=== PATIENT | female | born 1950 | race Caucasian/White ===

== ENCOUNTER 2019-01-04 14:10 | Inpatient (IN) | payer OTHER ==
[~2019-01-04 14:10] MED LIST: ALPHAGAN P10 ML OP; CALTRATE PLUS1 EACH PO; CENTRUM SILVER1 EAC1 PO; CIDAFLEX TABLE1 EACH PO; GARLIC OIL1 EACH PO; LEVOTHROID75 MCG PO; LORTAB 5 MG/5001 TA1 PO; STOOL SOFTENER240 MG PO; THIOTHIXENE5 M1 PO
--- NOTE | 2019-01-04 17:41 | NUR ---
CLIENT HERE WITH EMS WALKING WITH 2 EMS PERSONS. REFUSED TO HAVE VITALS TAKEN AT ADMIT. HEARING VOICES AND TELLING THEM TO STOP. WANTS TO WALK AROUND THE UNIT TO GET OUT OF ROOM DUE TO VOICES. SHE STATED SHE SOUNDS LIKE SHE IS TALKING LOUD. SHE YELLED OUT WHEN HERE TALKING TO VOICES. SMELLS LIKE CIGARETTS. HITTING HEAD ON WALL IN HALLWAY TALKING TO DR. EDWARDS. SHE STATED SORRY SHE WAS NOT NICE, SHE WAS HAVING A BAD DAY AND JUST WANTED TO . SHE STATED SHE WANTED TO GET OUT OF HER SISTERS HOUSE AND GET HER OWN APT.
--- NOTE | 2019-01-04 18:00 | NUR ---
OBTAINED VS AT THIS TIME. TALKING TO ROOM BY HER SELF.
[2019-01-04 18:20] VITALS: BP 171/101
--- NOTE | 2019-01-04 18:58 | NUR ---
ADM CLONIDINE 0.1MG PO FOR ELEVATED BP 171/101, PULSE 81. ALSO ADM ZYPREXIA 5MG PO FOR HALLUCINATIONS. CLIENT FIRST REFUSED DUE TO THE PAPER SHE WAS READING STATED SHE COULD REFUSE. THEN CLIENT STATED I WANT PILLS INSTEAD OF SHOT SO I WILL TAKE THEM. STATED SHE COULDN'T READ THE PAPER WITH VOICES IN HER HEAD. SHE HAS ROLLED UP TOILET PAPER IN EARS.
--- NOTE | 2019-01-04 19:16 | NUR ---
CLIENT HAS NOT YELLED OUT OR HIT HEAD SINCE ADMIT AT THIS TIME. DRINKING WATER. CLIENT VOMITED PRIOR TO ADM MED ON END TABLE, FROTHY SPIT.
[2019-01-04 20:05] VITALS: BP 172/110
[2019-01-05 01:00] VITALS: BP 172/110
--- NOTE | 2019-01-05 04:06 | NUR ---
ASSUMED CARE AT 1950. CONVERSATIONAL AND ASKING "WHAT IF" QUESTIONS THAT WERE UNREALISTIC. TOOK 2100 MEDS WHOLE WITH WATER. RESISTED AND UNCOOPERATIVE. IN BED AT 2100, SLEPT THROUGH OUT THE NOC. 9 HOURS OF SLEEP.
--- NOTE | 2019-01-05 06:48 | NUR ---
PT REFUSED LEVOTHYROXINE 88 @ 0620. WHEN ASKED WHY, SHE SAID THAT HER DOCTOR KNOWS WHY. SLEPT 9 HOURS LAST NOC.
[2019-01-05 07:15] VITALS: BP 149/101
--- NOTE | 2019-01-05 11:23 | H ---
[facility] [place] [address] HISTORY AND PHYSICAL Name: ERIKA GARRISON Room #: 520B-B ADM IN M.R.#: [id number] Admission: 01/04/19 ������������������ Attend Phys: Chandana Tejeda DO Discharge: ������������������ Date of : 52 Report #: [id number] THIS REPORT FOR: //name// CC: Chandana Tejeda Dilip Marroquin DATE OF SERVICE: 01/04/2019 INPATIENT PSYCHIATRIC EVALUATION ATTENDING: Chandana Tejeda DO IMPLEMENTATION ENGINEER: Babar Saab M.D. REASON FOR ADMISSION: Gopi psychosis. SOURCE OF INFORMATION: Brief interview with the patient, reviewed records from [facility], records from [facility] are the referral source. HISTORY OF PRESENT ILLNESS: This is a 68-year-old female known to me from previous hospitalizations and consultation in [facility] including other inpatient Geriatric Psychiatry Unit as well as the Emergency Room. I had last seen the patient in 07/2017 where she was not admitted due to several previous hospitalizations and noncompliance with recommendations as well as lack of ability at that point in time to get her under guardianship. The patient was brought to the Emergency Room today at [facility]. I initially did not get a clear report of how she got there. She was manifesting gopi psychotic features. The patient was medically cleared at [place]. There was concern of a UTI, so the Emergency Room started her on a course of Bactrim, which is Macrobid at [facility]. The patient was banging her head against the wall and reported she was hearing voices. She had difficulty controlling herself. She did get 5 mg of olanzapine this evening. She could tell me for sure how long she has not been medication compliant. It is also unclear exactly where she has been living. In the past, I recall her having family involved. There was ____ failure concerns. She is quite hypertensive. She is a smoker. ALLERGIES: INCLUDE LISINOPRIL, UNKNOWN REACTION, TRAVATAN. MEDICATION: The home medications were unclear at this point. I do not think, exactly from the ER to be levothyroxine 75 mcg daily, ____ 5 mg daily, Alphagan eyedrops, multivitamins, docusate. She was started on clonidine 0.1 mg twice a day for hypertension, Macrobid 100 mg b.i.d. for probable UTI, levothyroxine [address] Saab increased to 88 mcg daily, olanzapine 5 mg q. 6 p.r.n. 10 mg IM p.r.n. [address] [address] HISTORY AND PHYSICAL Name: ERIKA GARRISON [facility].R[facility] [id number] Admission: 01/04/19 ������������������ Attend Phys: Chandana Tejeda DO Discharge: ������������������ Date of : 52 Report #: [id number] PAST SURGICAL HISTORY: History of colon resection, smoking greater than 1-pack per day. REVIEW OF SYSTEM: Unable to do the review of systems. Physical exam grossly normal. Laboratories from [facility] momentarily. MENTAL STATUS EXAM: Well-developed, poorly nourished female, disheveled, appearing at least stated age gentleman. Attention limited. Concentration limited. Speech loud, yelling at times. Significant psychomotor agitation. No psychomotor retardation. Mood and affect is restricted, dysphoric, irritable, labile. The patient was unable to be tested for memory. LABORATORY DATA: Sodium 134, calcium 8.7, osmolality 270, otherwise normal BMP. Hematology: H and H is 15.9, 46.1, leukopenic at 3.50, platelet count 318. Urinalysis, moderate leukocyte esterase, 3-10 wbc's, 2 urobilinogen. I do not think culture was drawn. TSH was elevated at 7.96, free T4 0.98. There are probable medication noncompliance over a number of days. Additional information, Crisis Intervention officer was involved. She was at her home, called police, stating that she is hearing voices in her home. The patient lives alone. When police arrived, she explained "there is someone in her home." Person was trapped inside and screaming to get out. She further stated she had a status of male voice that she was going to kill herself. History of schizophrenic borderline traits, feel like [facility] in the past. The patient reported they wanted to take her to get a shot of her medication, she does not want a shot. The patient denies substance use via less than 10. The patient states she does not have a plan at this time to kill herself, she stated voice confuses her when she is trying to prepare the bills, the patient reports at [facility] with [employer] delivery. The patient is unsure where she is getting her money, unsure if she has insurance benefits. Her auditory hallucinations are again with stressful voices and having visual hallucinations of her family and her home. Additional medical history is colon resection in 2008 at [place]. FORMULATION: A 68-year-old female managed active auditory hallucionations and copncern for failure to thrive. Diagnoses at this time including from previous consultation that I had with her in 2017: Schizophrenia, cognitive impairment, unspecified.HTN, Tobacco Use disorder PLAN: Evaluate response to anti- psychotic [facility] [address] [place] [address] HISTORY AND PHYSICAL Name: ERIKA GARRISON Room #: 520B-B ADM IN M.R.#: [id number] Admission: 01/04/19 ������������������ Attend Phys: Chandana Tejeda DO Discharge: ������������������ Date of : 52 Report #: [id number] tonight, I will review [facility] records for other antipsychotics given. Estimated length of stay 7-14 days. Protective factors, relatively young age. No gross health concerns. Negative factors, noncompliance for social support. Also couple of additional points, not able to get a good drug history in the past, she had tried 1-2 times per week at least a pack a day of cigarettes in 2017. She told me 60. Additional past psychiatric history as follows: Multiple hospitalizations in January and February 2017, has been in several hospitals in the past in the past, multiple suicide attempts up to 5 times including overdose. strengths- young age relatively weaknesses: chronic mental illness, poor social support elos 10-14 days. ��������������������������������������������� <ELECTRONICALLY SIGNED> ���������������������������������������� By: Chandana Tejeda DO ��������������������������������������������� 01/05/19 [id number] Chandana Tejeda DO /nt
[2019-01-05 13:50] VITALS: BP 149/101
--- NOTE | 2019-01-05 17:41 | NUR ---
HAS BEEN OUT OF CONTROL TODAY. SHE WAS IRRITABLE AND REFUSED HER 7 AM MEDCIATION BUT TOOK IT WITH HER 0900 MEDICATIONS. SHE WAS NOTED TO GO INTO HER ROOM AND SHUTTING THE DOOR LOCKING IT, BEING VERY SURLY AND IRRITABLE WITH STAFF. SHE WAS LAYING IN THE PARKER ON THE FLOOR AND TOLD STAFF TO LEAVE HER ALONE. STAFF ASKED PT. TO GO TO HER ROOM AND LAY DOWN IF SHE NEEDED TO BUT NOT ON THE PARKER FLOOR. DR. ROSALES ORDERED TWO NOW MEDS WHICH SHE DID TAKE. PT. LAYING IN BED OFF AND ON TODAY. SHE SEEMED TO BE MORE INTENSE THE DAY WENT ON. AFTER SUPPER SHE HAS BEEN IN BED, FULLY DRESSED (SHE REFUSED TO CHANGE HER CLOTHING).
[2019-01-05 20:38] VITALS: BP 127/79
[2019-01-06 00:19] VITALS: BP 127/79
--- NOTE | 2019-01-06 03:04 | NUR ---
PT IN BED AT CHANGE OF SHIFT. COOPERATIVE WITH PHYSICAL ASSESSMENT. TOOK HS MEDS PRESCRIBED. SELF CARE. ABLE TO TOILET INDEPENDANTLY. REMAINED ISOLATED IN HER ROOM THROUGH THE NIGHT.
[2019-01-06 05:57] VITALS: BP 152/85
[2019-01-06 07:46] VITALS: BP 117/75
[2019-01-06 11:07] VITALS: BP 118/80
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
[2019-01-06 20:35] VITALS: BP 144/80
[2019-01-07 01:52] VITALS: BP 144/80
--- NOTE | 2019-01-07 03:31 | NUR ---
PT IN ROOM AND BED EARLY IN SHIFT. OUT FOR EVENING SNACK. RETURNED TO ROOM. TOOK HS MEDS W/O COMPLAINT. UP AND DOWN SEVERAL TIMES DURING THE NIGHT, BUT WAS NOT A MANAGEMENT PROBLEM. SLEPT INTERMITTANTLY THROUGH THE NIGHT. DENIES SI, AND WAS CORDIAL TOWARD STAFF AND PEERS.
[2019-01-07 05:31] VITALS: BP 153/94
[2019-01-07 07:30] VITALS: BP 129/83
--- NOTE | 2019-01-07 08:00 | NUR ---
CLIENT UP AD [facility] THIS AM. CLIENT WANTED TO TO HOME TODAY. CLIENT ATE BREAKFAST. CLIENT WEARING COAT ON THE UNIT.
--- NOTE | 2019-01-07 11:30 | NUR ---
ASKING QUESTIONS ABOUT IF SHE HAS FAMILY OR SUPPORT. SHE STATED SHE DOESN'T KNOW WHICH HOUSE SHE LIVES IN AND WOULDN'T ENDULGE IN WHERE SHE CAME FROM. SHE DIDN'T WANT TO GIVE OUT PERSONAL INFORMATION. SHE SAYS SHE HAS FAMILY, BUT NOT ON TALKING BASES WITH THEM DUE TO BAD SITUATIONS.
--- NOTE | 2019-01-07 14:50 | NUR ---
EATING SNACK IN DINNING ROOM. SAT AT TABLE CLIENT WAS AT AND SHE MOVED TO ANOTHER TABLE.
--- NOTE | 2019-01-07 15:14 | NUR ---
CLIENT DIDN'T WANT TO TAKE CLONIDINE 0.1MG BP ELEVATED ABOVE PERAMETERS. 157/91, 74 PULSE. CLIENT DID TAKE BP MED FOR THIS NURSE.
[2019-01-07 19:30] VITALS: BP 149/83
--- NOTE | 2019-01-07 23:18 | NUR ---
ASSUMED PT CARE 1900. PT SLEEPING IN BED. AWOKE PT FOR NIGHT MEDICATIONS AND ASSESSMENT. PT REFUSED ALL MEDS AND ASSESSMENT. PT STATED "I DO NOT FEEL LIKE IT" PT REFUSED VS. WILL CONTINUE TO MONITOR.
[2019-01-08 07:50] VITALS: BP 147/103
--- NOTE | 2019-01-08 09:18 | NUR ---
ASSUMED PATIENT CARE AT 0700. PATIENT STILL IN BED AT THAT TIME. ATE 100% OF BREAKFAST. COMPLIANT WITH A.M. MEDICATIONS. STATED THAT SHE HAD A BOWEL MOVEMENT AFTER BREAKFAST. IS ATTENDING RECRE[facility] THERAPY GROUP IN SMALL GROUP ROOM AT THIS TIME.
[2019-01-08 09:38] VITALS: BP 147/101
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
[2019-01-08 21:50] VITALS: BP 143/87
--- NOTE | 2019-01-09 00:48 | NUR ---
PT LYING IN BED. DENIES PAIN. RESTING COMFORTABLY. NO NEEDS VOICED. CALL LIGHT WITHIN REACH. WILL CONTINUE TO PROVIDE FREQUENT OBSERVATION.
[2019-01-09 07:24] VITALS: BP 136/92
--- NOTE | 2019-01-09 11:47 | NUR ---
ASSSUMED PT CARE @ 0700 -PT ALERT & ORIENTED TO PERSON, PLACE, TIME. FORGETFUL @TIMES. UP ADLIB W/STEADY GAIT. PT ATE MEALS IN DAYROOM & ATTENDED GOALS GROUP THIS AM. PT REPORTS SHE IS NOT HEARING VOICES MUCH TODAY, BUT DOES REPORT THEY CALL PEOPLE NAMES WHEN SHE DOES HEAR THEM. PT DENIES ANY SELF HARM THOUGHTS, BUT DID STATE THE VOICES SOMETIMES TELL HER TO HURT HERSELF BUT SHE WAS ABLE TO VERBALLY CONTRACT IF SHE HEARD VOICES TELLING HER TO HURT HERSELF SHE WOULD LET STAFF KNOW. PT QUIET & KEEPS TO HERSELF WHEN UP IN DAYROOM. DENIES ANY COMPLAINTS AND NO ACUTE DISTRESS NOTED. COOPERATIVE WITH MEDICATIONS. CONTINUE TO MONITOR.
[2019-01-09 13:02] VITALS: BP 117/64
--- NOTE | 2019-01-09 17:52 | NUR ---
PT RESTING QUIETLY IN BED AT THIS TIME. NO DISTRESS NOTED. ATE DINNER IN DAYROOM AREA. SAT QUIETLY. CONTINUE TO MONITOR THROUGHOUT SHIFT.
[2019-01-09 19:36] VITALS: BP 156/77
[2019-01-09 19:38] VITALS: BP 156/77
--- NOTE | 2019-01-10 03:22 | NUR ---
PT AMBULATING IN HALLWAYS INDEPENDENTLY AND IS TOLERATING WELL. DENIES PAIN. RESTING COMFORTABLY. NO NEEDS VOICED. CALL LIGHT WITHIN REACH. WILL CONTINUE TO PROVIDE FREQUENT OBSERVATION.
--- NOTE | 2019-01-10 03:23 | NUR ---
WITHDRAWN TO ROOM SINCE START OF SHIFT AT 1900-WHEN APPROACHED IN ROOM FOR HS MEDICATIONS APPEARS GUARDED-OFFERING MINIMAL VERBAL RESPONSES TO QUESTIONS/INQUIRES FROM STAFF-DYSPHORIC MOOD-ANGRY/TENSE FACIAL EXPRESSION OBSERVED-ABRUPT RESPONSES. WHEN ASKED IF SHE WOULD LIKE TO COME OUT TO WATCH TV AND HAVE SNACK WITH PEERS STATES "NO" AND ROLLS AWAY FROM STAFF. WAS COMPLIENT WITH HS MEDICATIONS- STAFF WAS PROVIDING INFORMATION ON NAMES,DOSE AND INDICATIONS STATES "IT DOESN'T MATTER I DON'T REALLY HAVE A CHOICE-I HAVE TO TAKE IT"
[2019-01-10 07:52] VITALS: BP 126/73
[2019-01-10 14:25] VITALS: BP 126/73
[2019-01-10 14:27] VITALS: BP 126/73
[2019-01-10] MEDS ORDERED: CATAPRES0.1 MG PO (14:28)
[2019-01-10] MEDS ORDERED: OXCARBAZEPINE300 MG PO (14:28)
--- NOTE | 2019-01-10 14:29 | NUR ---
Patient Name: ERIKA GARRISON Admission Date: 01/04/19 DISCHARGE PLAN: Pt will discharge to her home. Care Assessment: Pt was evaluated by Dr. Tejeda, and seen that pt was having psychosis. Pt was compliant with medication. Pt will continue to see a psychiatrist through [facility]. Level II Assessment: None Transportation: Pt will be transported by [employer] to her home. Special Instructions/Notes: Pt will need to continue on her medication, and scheduled appointment with her psychiatrist. DISCHARGE TO FACILITY: Facility: Phone: Fax: Address: Contact Name: Phone: PCP: Unknown Psychiatrist: Pt see a psychiatrist through [facility].
[2019-01-10] MEDS ORDERED: HALOPERIDOL 5 MG5 MG PO ×2 (14:31→14:32)
[2019-01-10] MEDS ORDERED: SYNTHROID88 MCG PO (14:33)
--- NOTE | 2019-01-10 14:54 | NUR ---
SW scheduled appointment with [facility] [place] [address]. Pt has appointment on January 13 at 1:00pm. SW provided discharge documentation to [facility] and [facility].
[2019-01-10 15:09] VITALS: BP 126/73
--- NOTE | 2019-01-10 16:02 | NUR ---
ASSUMED CARE AT 0715. PT. SECLUSIVE AND NOT SPEAKING MUCH TO ANYONE. STILL STATES SHE HAS AVH BUT DENIES HI/SI. SHE IS TO BE DISCHARGED TODAY. BELONGINGS GATHERED, MED SCRIPTS GIVEN TO PATIENT. DR. ROSALES AND SW SPOKE TO PT. ABOUT DISCHARGE. PT. LEFT THE UNIT AT 1600 TO GATHER HER MONEY FROM SECURITY AND GO TO THE ER ENTRANCE TO TAKE A TAXI HOME. PT. LEFT WITH ALL HER BELONGINGS, SCRIPTS, INSTRUCTIONS SHEETS.
== END 2019-01-10 16:30 | disposition home or self-care (01) | DRG 885 ==
LOC: SBH 14:10
PROVIDERS: ADMIT Psychiatry & Neurology Psychiatry
DX: F20.9 Schizophrenia, unspecified (principal); F17.210 Nicotine dependence, cigarettes, uncomplicated; E78.5 Hyperlipidemia, unspecified; E03.9 Hypothyroidism, unspecified; I10 Essential (primary) hypertension; Z85.038 Personal history of other malignant neoplasm of large intestine; Z88.8 Allergy status to other drugs, medicaments and biological substances; Z90.49 Acquired absence of other specified parts of digestive tract; Z79.899 Other long term (current) drug therapy
CPT/HCPCS: 10880